=== PATIENT | male | born 1980 | race Hispanic/Latino ===

== ENCOUNTER 2018-07-10 13:38 | Emergency (ER) | payer OTHER, SELFPAY ==
[2018-07-10 13:41] VITALS: BP 129/86; PULSE 94; RESP 24; TEMP 36.4; O2SAT 98
--- NOTE | 2018-07-10 13:46 | DI.RAD.S_ITS ---
PROCEDURE: XR CHEST 1V INDICATIONS: chest pain TECHNIQUE: One view of the chest was acquired. COMPARISON: None. FINDINGS: Surgical changes and devices: None. Lungs and pleura: Small parenchymal opacity left lateral lower lung.. No pleural effusions or pneumothorax. Mediastinum: Mediastinal contours appear normal. Heart size is normal. Bones and chest wall: No suspicious bony lesions. Overlying soft tissues appear unremarkable. IMPRESSION: Small left lower lung pneumonia. Dictated by: Mercedes Prater M.D. on 07/10/2018 at 15:34 Approved by: Mercedes Prater M.D. on 07/10/2018 at 15:35
[2018-07-10 15:00] VITALS: BP 115/80; PULSE 100; RESP 19; O2SAT 96
--- NOTE | 2018-07-10 15:14 | ED.CHESTPAIN ---
HPI - Chest Pain General Chief Complaint: Chest Pain Stated Complaint: EPIGASTRIC/CHEST PAIN/BURNING Time Seen by Provider: 07/10/18 15:08 Source: patient Mode of arrival: ambulatory Limitations: no limitations History of Present Illness HPI narrative: The patient is a 37-year-old male who presents with chest pain. He says he has had cough and flu-like symptoms ongoing for about 2 weeks he has overall gotten better but still has occasional cough which is significantly worse at nighttime. Last night he woke up with burning in his chest which then triggered a coughing spell which then he vomited 4. He still has burning in his chest. He was actually given a GI cocktail by nursing and he says that resolved completely within seconds. He has no further abdominal pain nausea or vomiting besides what was triggered by coughing. He denies any shortness of breath. MD complaint: chest pain Duration: constant Related Data Previous Rx's Medication Instructions Recorded doxycycline hyclate 100 mg PO BID #14 cap 07/10/18 omeprazole 20 mg PO DAILY #30 tab 07/10/18 Allergies Allergy/AdvReac Type Severity Reaction Status Date / Time No Known Drug Allergies Allergy Verified 07/10/18 13:45 Review of Systems Review of Systems GENERAL: Denies chills, fatigue, malaise, fever, sweats, travel HEENT: Denies sinus pain, ear pain, sore throat, difficulty swallowing, neck pain RESPIRATORY: Denies dyspnea, cough, wheezing, hemoptysis, sputum. CARDIOVASCULAR: See HPI GASTROINTESTINAL: Denies nausea, vomiting, abdominal pain, diarrhea, constipation, melena. : Denies dysuria, frequency, incontinence, hematuria, urinary retention, flank pain. MUSCULOSKELETAL: Denies weakness, joint pain, or bony pain SKIN: No rash, no erythema, no pruritus NEUROLOGIC: Denies weakness, dizziness, headache, numbness, change in speech, confusion PSYCHIATRIC: No concerning psychosocial issues. 12 point review of systems is negative except for those stated above and HPI [facility] Medical History GERD (gastroesophageal reflux disease) (Acute) Social History Smoking Status: Current every day smoker Social History Smoking Status: Current every day smoker Exam Initial Vital Signs Initial Vital Signs: Vital Signs Temperature 97.5 F L 07/10/18 13:41 Pulse Rate 94 H 07/10/18 13:41 Respiratory Rate 24 07/10/18 13:41 Blood Pressure 129/86 07/10/18 13:41 Pulse Oximetry 98 07/10/18 13:41 GENERAL: Well-appearing, well-nourished and in no acute distress. HEENT: Head atraumatic,EOMI, pupils reactive, CARDIOVASCULAR: Regular rate and rhythm without murmurs, rubs or gallops. RESPIRATORY: Breath sounds equal bilaterally, no wheezes rales or rhonchi. ABDOMEN: Soft, nontender. Normoactive bowel sounds all 4 quadrants. No guarding or rebound. EXTREMITIES: Normal range of motion, no clubbing or edema. Neurovascularly intact NEUROLOGICAL: Alert and oriented x4.Normal gait and speech. Cranial nerves II through XII grossly intact. SKIN: Warm, dry, no laceration, no petechiae, no rashes or lesions. Course Orders Ordered: ED Orders 07/10/18 13:46 Chest [XR chest 1V] Stat EKG-12 Lead Stat Vital Signs - 8 hr 07/10/18 13:41 Temperature 97.5 F L Pulse Rate 94 H Respiratory Rate 24 Blood Pressure 129/86 Pulse Oximetry 98 MDM - Chest Pain ECG Data Attestation: I personally reviewed and interpreted this ECG as follows: Prior ECG tracings: available for review Interpretation: Normal sinus rhythm rate [address] changes no T-wave inversion MDM Narrative Medical decision making narrative: The patient overall appears well nontoxic, at this time do not believe him need blood work or IV fluids. His chest discomfort is gone after GI cocktail. X-ray does confirm pneumonia. Will put him on antibiotics, and start reflux medicine. Discharge Plan Departure Patient Disposition: Home Clinical Impression: Pneumonia Qualifiers: Pneumonia type: due to unspecified organism Laterality: left Lung location: lower lobe of lung Qualified Code(s): J18.1 - Lobar pneumonia, unspecified organism GERD (gastroesophageal reflux disease) Qualifiers: Esophagitis presence: esophagitis presence not specified Qualified Code(s): K21.9 - Gastro-esophageal reflux disease without esophagitis Discharge Date/Time: 07/10/18 16:00 Interventions: ED Discharge Assessment Last Done: 07/10/18 15:00 Instructions: Heartburn -- Overview, DI for Pneumonia -- Adult Activity Restrictions/Additional Instructions: *You have been diagnosed with pneumonia and acid reflux *What to do: Increase fluid intake *Continue to take medications as directed Doxycycline 100 mg twice a day for 7 Omeprazole 20 mg 30 min before dinner every night *Follow up with your primary care provider in 2-3 days *Return to ER if you should have increasing shortness of breath, fever, body or any new, worsening or concerning symptoms Prescriptions: New doxycycline hyclate 100 mg capsule 100 mg PO BID Qty: 14 RF: 0 omeprazole 20 mg tablet,delayed release (DR/EC) 20 mg PO DAILY Qty: 30 RF: 0
== END 2018-07-10 16:00 | disposition home or self-care (01) ==
PROVIDERS: Emergency Provider Emergency Medicine
DX: J18.1 Lobar pneumonia, unspecified organism (principal)
CPT/HCPCS: 71045; 93005; 99282; 99284